=== PATIENT | female | born 1950 | race Caucasian/White ===

== ENCOUNTER 2016-08-23 12:27 | Observation (INO) | payer MEDICARE ==
[~2016-08-23] VITALS: Ht 154.9 cm; Wt 84.5 kg
[~2016-08-23 12:27] MED LIST: ALBU6.7H INH; AMLO10TA2 PO; ASPI-496 PO; ATOR10TA PO; ATOR20TA9 PO; BENA40TA2 PO; CANA100T PO; CARV6.252 PO; CYCL-259 PO; DICL100G8 TP; DIPH25CA61 PO; EPIN0.3P3 INJ; GEMF600T3 PO; IBUP-1222 PO; METH500T97 PO; METH750T2 PO; MONT10TA9 PO; PANT40TA3 PO; PRAV20TA2 PO; SERT25TA3 PO
[2016-08-23] MEDS ORDERED: SODIUM CHLORIDE 0.9% 1,000 ML IV ONE (12:57)
[2016-08-23] MEDS ORDERED: ASPIRIN 81 MG TABLET CHEW PO ONE (13:00)
[2016-08-23] MEDS ORDERED: SODIUM CHLORIDE FLUSH 10ML SYR IVF ONE (13:00)
[2016-08-23] MEDS ORDERED: NITROGLYCERIN SINGLE TAB 0.4 MG SL ONE (13:14)
[2016-08-23] MEDS: NITROGLYCERIN SINGLE TAB 0.4 MG SL PRN ×3 (13:15→13:25)
[2016-08-23] MEDS ORDERED: ASPIRIN 81 MG TABLET CHEW ONE (13:15)
[2016-08-23 13:23] LABS: HEMOGLOBIN 15.2 g/dL (11.7-16.4)
[2016-08-23] MEDS ORDERED: TRAM50TA2 PO (13:29)
[2016-08-23] MEDS ORDERED: LORA1TAB PO (13:29)
[2016-08-23 13:36] LABS: BLOOD UREA NITROGEN 10 mg/dL (7-18)
[2016-08-23 13:42] LABS: IS PT STATUS REG ER OR PRE ER? YES
[2016-08-23] MEDS ORDERED: MORPHINE SULFATE 4 MG/ML, 1ML ONE (13:52)
[2016-08-23] MEDS: LORazepam 1MG TABLET PO SCH ×2 (14:21→21:07)
[2016-08-23] MEDS ORDERED: DEXTROSE 4 GM TAB.CHEW PO PRN (14:30)
[2016-08-23] MEDS ORDERED: NITROGLYCERIN 0.4 MG/SPRAY SL PRN (14:30)
[2016-08-23] MEDS ORDERED: ACETAMINOPHEN 325 MG TABLET PO PRN (14:30)
[2016-08-23] MEDS ORDERED: NITROGLYCERIN 0.4 MG BOTTLE (25 TABS) SL PRN (14:30)
[2016-08-23] MEDS ORDERED: DEXTROSE 50%, 50ML SYRINGE IVPush PRN (14:30)
[2016-08-23] MEDS ORDERED: MORPHINE SULFATE 4 MG/ML, 1ML IVPush PRN ×2 (14:30)
[2016-08-23] MEDS ORDERED: GLUCAGON 1 MG IM PRN (14:30)
[2016-08-23] MEDS ORDERED: ENOXAPARIN 40 MG/0.4 ML SQ SCH (14:30)
[2016-08-23] MEDS ORDERED: ALBUTEROL SULFATE 2.5 MG/3 ML HHN PRN (15:00)
[2016-08-23 15:08] VITALS: BP 146/80
[2016-08-23] MEDS: INSULIN ASPART 100 UNITS/ML, PEN SQ-INSULIN SCH ×2 (16:00→21:08)
[2016-08-23 19:33] VITALS: BP 134/77
[2016-08-23 20:04] LABS: IS PT STATUS REG ER OR PRE ER? NO
[2016-08-23] MEDS ORDERED: CARVEDILOL 6.25 MG TABLET PO SCH ×2 (21:00)
[2016-08-23] MEDS ORDERED: ATORVASTATIN 20 MG TABLET PO SCH (21:00)
[2016-08-23] MEDS: SODIUM CHLORIDE FLUSH 10ML SYR IVF SCH (21:06)
[2016-08-24 02:36] VITALS: BP 113/70
[2016-08-24 02:42] LABS: HEMOGLOBIN 14.2 g/dL (11.7-16.4)
[2016-08-24 02:47] LABS: IS PT STATUS REG ER OR PRE ER? NO
[2016-08-24 02:59] LABS: BLOOD UREA NITROGEN 11 mg/dL (7-18)
[2016-08-24] MEDS: INSULIN ASPART 100 UNITS/ML, PEN SQ-INSULIN SCH ×2 (07:00→11:25)
[2016-08-24 07:48] VITALS: BP 120/67
[2016-08-24] MEDS: LORazepam 1MG TABLET PO SCH (07:57)
[2016-08-24] MEDS: SODIUM CHLORIDE FLUSH 10ML SYR IVF SCH (07:58)
[2016-08-24] MEDS ORDERED: REGADENOSON 0.4 MG/5 ML SYRINGE ONE (08:05)
[2016-08-24] MEDS ORDERED: BENAZEPRIL 20 MG TABLET PO SCH (09:00)
[2016-08-24] MEDS ORDERED: SERTRALINE 50MG TABLET PO SCH (09:00)
[2016-08-24] MEDS ORDERED: AMLODIPINE 5 MG TABLET PO SCH (09:00)
== END 2016-08-24 16:30 | disposition home or self-care (01) ==
LOC: ED 13:48 → INTOOBSV 13:49 → EDIP 13:49 → 5SO 14:50 → DCLOUNGE 08-24 15:55
PROVIDERS: ADMIT Family Medicine; ATTEND Family Medicine
DX: R07.89 Other chest pain (principal); I10 Essential (primary) hypertension; E11.9 Type 2 diabetes mellitus without complications; I21.3 ST elevation (STEMI) myocardial infarction of unspecified site; C95.90 Leukemia, unspecified not having achieved remission; E78.00 Pure hypercholesterolemia, unspecified; I25.10 Atherosclerotic heart disease of native coronary artery without angina pectoris; Z86.73 Personal history of transient ischemic attack (TIA), and cerebral infarction without residual deficits
CPT/HCPCS: 36415; 71010; 78452; 80048; 82040; 82962; 83880; 84484; 85025; 93005; 93017; 96361; 96372; 96374; 96376; 99285; A9502; C9898; G0378; J1650; J1815; J2785; J7030

== ENCOUNTER 2017-05-01 10:36 | Emergency (ER) | payer MEDICARE ==
[~2017-05-01] VITALS: Ht 154.9 cm; Wt 84.0 kg
[~2017-05-01 10:36] MED LIST changes: +DICL100G19 TP; -DICL100G8 TP; +LORA1TAB PO; +TRAM50TA2 PO
[2017-05-01] MEDS ORDERED: ALBUTEROL/IPRATROPIUM 2.5MG/0.5MG, 3 ML ONE (11:26)
[2017-05-01] MEDS ORDERED: ALBUTEROL/IPRATROPIUM 2.5MG/0.5MG, 3 ML NPPB ONE (11:30)
[2017-05-01] MEDS ORDERED: CEFTRIAXONE PMX 1GM/50ML 50 ML IVPB ONE (12:00)
[2017-05-01] MEDS ORDERED: ACETAMINOPHEN 325 MG TABLET PO ONE (12:00)
[2017-05-01] MEDS ORDERED: SODIUM CHLORIDE 0.9% 1,000ML IVBOLUS ONE (12:00)
[2017-05-01] MEDS ORDERED: AZITHROMYCIN 500 MG in SODIUM CHLORIDE 0.9% 250 ML IVPB ONE (12:00)
[2017-05-01] MEDS ORDERED: AMLO10TA2 PO (12:04)
[2017-05-01] MEDS ORDERED: AMLO5TAB2 PO (12:04)
[2017-05-01] MEDS ORDERED: DULO30CA2 PO (12:08)
[2017-05-01] MEDS ORDERED: LORA1TAB PO (12:08)
[2017-05-01] MEDS ORDERED: PIOG1TAB PO (12:08)
[2017-05-01] MEDS ORDERED: TIZA4TAB PO (12:08)
[2017-05-01] MEDS ORDERED: ACET1TAB34 PO (12:10)
[2017-05-01] MEDS ORDERED: ACETAMINOPHEN 325 MG TABLET ONE (12:15)
[2017-05-01 12:19] LABS: HEMATOCRIT 45.1 % (34.6-47.8); HEMOGLOBIN 15.1 g/dL (11.7-16.4); WHITE BLOOD COUNT 5.6 x10^3/uL (3.4-10)
[2017-05-01 12:24] LABS: BLOOD UREA NITROGEN 13 mg/dL (7-18)
[2017-05-01 13:18] VITALS: BP 177/90
== END 2017-05-01 13:23 | disposition home or self-care (01) ==
LOC: ED 12:42
DX: J18.0 Bronchopneumonia, unspecified organism (principal); E11.9 Type 2 diabetes mellitus without complications; E78.00 Pure hypercholesterolemia, unspecified; I10 Essential (primary) hypertension; I25.10 Atherosclerotic heart disease of native coronary artery without angina pectoris; I25.2 Old myocardial infarction; Z90.49 Acquired absence of other specified parts of digestive tract; Z90.710 Acquired absence of both cervix and uterus; Z88.8 Allergy status to other drugs, medicaments and biological substances
CPT/HCPCS: 36415; 71020; 80048; 82040; 83605; 84145; 85025; 87040; 93005; 94640; 96365; 96368; 99285; J0456; J0696; J7030; J7050; J7512; J7620

== ENCOUNTER 2017-06-06 11:46 | Emergency (ER) | payer MEDICARE ==
[~2017-06-06] VITALS: Ht 154.9 cm; Wt 89.0 kg
[~2017-06-06 11:46] MED LIST changes: +ACET1TAB34 PO; +AMLO5TAB2 PO; +DULO30CA2 PO; +PIOG1TAB PO; +TIZA4TAB PO
[2017-06-06 13:06] LABS: BASOPHILS # (AUTO) 0.04 x10^3/uL (0-0.1); BASOPHILS % (AUTO) 1 % (0-1); EOSINOPHILS # (AUTO) 0.13 x10^3/uL (0-0.4); EOSINOPHILS % (AUTO) 2 % (1-7); LYMPHOCYTES # (AUTO) 2.51 x10^3/uL (1-3.4); LYMPHOCYTES % (AUTO) 37 % (22-44); MD NO; MEAN CORPUSCULAR HEMOGLOBIN 29.3 pg (27.0-34.8); MEAN CORPUSCULAR HGB CONC 33.1 g/dL (32.4-35.8); MEAN CORPUSCULAR VOLUME 88.5 fL (80-100); MEAN PLATELET VOLUME 7.9 fL (7.4-10.4); MONOCYTES # (AUTO) 0.48 x10^3/uL (0.2-0.8); MONOCYTES % (AUTO) 7 % (2-9); NEUTROPHILS # (AUTO) 3.68 x10^3/uL (1.8-6.8); NEUTROPHILS % (AUTO) 54 % (42-75); PLATELET COUNT 317 x10^3/uL (130-400); RED BLOOD COUNT 4.85 x10^6/uL (3.82-5.3); RED CELL DISTRIBUTION WIDTH 15.2 % (9.6-15.2)
[2017-06-06 13:15] LABS: INTERNATIONAL NORMALIZED RATIO 0.99 (0.93-1.1); PROTHROMBIN TIME 10.3 Seconds (9.6-11.5)
[2017-06-06 13:19] LABS: ALBUMIN 3.8 g/dL (3.4-5.0); ANION GAP 6 mmol/L (5-15); CALCIUM 8.8 mg/dL (8.5-10.1); CHLORIDE 106 mmol/L (98-107); CREATININE 0.67 mg/dL (0.55-1.02)
[2017-06-06 13:22] LABS: TROPONIN I < 0.015 ng/mL (0.000-0.045)
[2017-06-06 14:18] VITALS: BP 173/93
== END 2017-06-06 15:00 | disposition home or self-care (01) ==
LOC: ED 14:00
DX: M94.0 Chondrocostal junction syndrome [Tietze] (principal); E11.9 Type 2 diabetes mellitus without complications; E78.00 Pure hypercholesterolemia, unspecified; G43.909 Migraine, unspecified, not intractable, without status migrainosus; I10 Essential (primary) hypertension; I21.9 Acute myocardial infarction, unspecified; I25.10 Atherosclerotic heart disease of native coronary artery without angina pectoris; Z90.49 Acquired absence of other specified parts of digestive tract
CPT/HCPCS: 36415; 71046; 80048; 82040; 84484; 85025; 85610; 85730; 93005

== ENCOUNTER → 2017-12-14 | Outpatient (CLI) | payer MEDICARE ==
[~2017-12-14] MED LIST changes: +OMNIPAQUE 350 MG/ML, 150 ML BOTTLE ONE
== END | disposition home or self-care (01) ==
LOC: CFH 13:05
PROVIDERS: ATTEND Pain Medicine Interventional Pain Medicine
DX: E04.2 Nontoxic multinodular goiter (principal); R07.9 Chest pain, unspecified; M54.12 Radiculopathy, cervical region
CPT/HCPCS: 70491; 71046; 71260; 82565; Q9967

== ENCOUNTER → 2018-03-02 | Outpatient (CLI) | payer MEDICARE ==
[~2018-03-02] MED LIST changes: -AMLO10TA2 PO; +AMLO10TA6 PO; -AMLO5TAB2 PO; +AMLO5TAB7 PO; -BENA40TA2 PO; +BENA40TA3 PO; -GEMF600T3 PO; +GEMF600T4 PO; -OMNIPAQUE 350 MG/ML, 150 ML BOTTLE ONE
[2018-03-02 12:54] LABS: T4 (THYROXINE) 12.8 mcg/dL (4.8-13.9)
[2018-03-02 13:02] LABS: THYROID STIMULATING HORMONE 1.43 mIU/L (0.358-3.740)
== END | disposition home or self-care (01) ==
LOC: CFH 09:24
PROVIDERS: ATTEND Family Medicine
DX: E04.1 Nontoxic single thyroid nodule (principal); E11.9 Type 2 diabetes mellitus without complications; Z86.73 Personal history of transient ischemic attack (TIA), and cerebral infarction without residual deficits
CPT/HCPCS: 36415; 84436; 84443; 86376; 86800

== ENCOUNTER 2018-03-16 09:05 | Emergency (ER) | payer MEDICARE ==
[~2018-03-16] VITALS: Ht 154.9 cm; Wt 99.5 kg
[2018-03-16] MEDS ORDERED: AMLODIPINE 5 MG TABLET ONE (09:41)
[2018-03-16] MEDS ORDERED: ACETAMINOPHEN 500 MG TABLET ONE (09:41)
[2018-03-16] MEDS ORDERED: CARVEDILOL 3.125 MG TABLET ONE (09:41)
[2018-03-16] MEDS ORDERED: PROMETHAZINE 25 MG/ML, 1ML ONE (09:41)
[2018-03-16] MEDS ORDERED: ACETAMINOPHEN 500 MG TABLET PO ONE (10:00)
[2018-03-16] MEDS ORDERED: PROMETHAZINE 25 MG/ML, 1ML IM ONE (10:00)
[2018-03-16] MEDS ORDERED: AMLODIPINE 5 MG TABLET PO ONE (10:00)
[2018-03-16] MEDS ORDERED: CARVEDILOL 6.25 MG TABLET PO ONE (10:30)
[2018-03-16] MEDS ORDERED: BENAZEPRIL 20 MG TABLET PO ONE (10:30)
[2018-03-16 10:31] VITALS: BP 164/86
== END 2018-03-16 11:12 | disposition home or self-care (01) ==
LOC: ED 10:30
DX: R51 Headache (principal); J20.8 Acute bronchitis due to other specified organisms; I10 Essential (primary) hypertension; B97.89 Other viral agents as the cause of diseases classified elsewhere; E11.9 Type 2 diabetes mellitus without complications; F41.1 Generalized anxiety disorder; I25.10 Atherosclerotic heart disease of native coronary artery without angina pectoris; Z87.891 Personal history of nicotine dependence
CPT/HCPCS: 93005; 96372; 99284; J2550

== ENCOUNTER → 2018-03-18 | Outpatient (CLI) | payer MEDICARE | END | disposition home or self-care (01) | LOC: CFH 14:16 | PROVIDERS: ATTEND Family Medicine | DX: E04.2 Nontoxic multinodular goiter (principal) | CPT/HCPCS: 76536 ==

== ENCOUNTER 2018-04-13 19:11 | Emergency (ER) | payer MEDICARE ==
[~2018-04-13] VITALS: Ht 154.9 cm; Wt 98.8 kg
[2018-04-13] MEDS ORDERED: ALBUTEROL/IPRATROPIUM 2.5MG/0.5MG, 3 ML NPPB ONE (19:30)
[2018-04-13] MEDS ORDERED: ONDANSETRON 2MG/ML, 2ML IVPush ONE (19:30)
[2018-04-13] MEDS ORDERED: SODIUM CHLORIDE FLUSH 10ML SYR IVF ONE (19:30)
[2018-04-13] MEDS ORDERED: ONDANSETRON 2MG/ML, 2ML ONE (19:46)
[2018-04-13] MEDS ORDERED: AZITHROMYCIN 500 MG TABLET PO ONE (20:00)
[2018-04-13] MEDS ORDERED: ALBUTEROL/IPRATROPIUM 2.5MG/0.5MG, 3 ML ONE (20:01)
[2018-04-13] MEDS ORDERED: AZITHROMYCIN 250 MG TABLET ONE (20:03)
[2018-04-13 20:04] LABS: BASOPHILS # (AUTO) 0.03 x10^3/uL (0-0.1); BASOPHILS % (AUTO) 0 % (0-1); EOSINOPHILS # (AUTO) 0.41 x10^3/uL (0-0.4); EOSINOPHILS % (AUTO) 5 % (1-7); LYMPHOCYTES % (AUTO) 24 % (22-44); MD NO; MEAN CORPUSCULAR HEMOGLOBIN 30.1 pg (27.0-34.8); MEAN CORPUSCULAR HGB CONC 33.3 g/dL (32.4-35.8); MEAN CORPUSCULAR VOLUME 90.3 fL (80-100); MEAN PLATELET VOLUME 8.9 fL (7.4-10.4); MONOCYTES # (AUTO) 0.65 x10^3/uL (0.2-0.8); MONOCYTES % (AUTO) 8 % (2-9); NEUTROPHILS # (AUTO) 5.11 x10^3/uL (1.8-6.8); NEUTROPHILS % (AUTO) 62 % (42-75); PLATELET COUNT 243 x10^3/uL (130-400); RED BLOOD COUNT 4.48 x10^6/uL (3.82-5.3)
[2018-04-13 20:07] LABS: ANION GAP 11 mmol/L (5-15); CHLORIDE 110 mmol/L (98-107); CREATININE 1.08 mg/dL (0.55-1.02)
[2018-04-13 20:25] LABS: TROPONIN I < 0.015 ng/mL (0.000-0.045)
[2018-04-13 21:08] VITALS: BP 140/73
[2018-04-13] MEDS ORDERED: ACETAMINOPHEN 500 MG TABLET ONE (21:27)
[2018-04-13] MEDS ORDERED: ACETAMINOPHEN 500 MG TABLET PO ONE (21:30)
== END 2018-04-13 21:43 | disposition home or self-care (01) ==
LOC: ED 20:32
DX: J18.9 Pneumonia, unspecified organism (principal); J45.901 Unspecified asthma with (acute) exacerbation; E78.00 Pure hypercholesterolemia, unspecified; I25.2 Old myocardial infarction; I25.10 Atherosclerotic heart disease of native coronary artery without angina pectoris; I10 Essential (primary) hypertension; E11.9 Type 2 diabetes mellitus without complications; G43.909 Migraine, unspecified, not intractable, without status migrainosus; Z90.49 Acquired absence of other specified parts of digestive tract; Z90.710 Acquired absence of both cervix and uterus
CPT/HCPCS: 36415; 71045; 80048; 82040; 83605; 84145; 84484; 85025; 87040; 93005; 94640; 96374; 99285; J2405; J7512; J7620

== ENCOUNTER 2018-04-17 11:10 | Emergency (ER) | payer MEDICARE ==
[~2018-04-17] VITALS: Ht 154.9 cm; Wt 99.2 kg
[2018-04-17] MEDS ORDERED: IPRATROPIUM 0.5 MG/2.5 ML INHA NPPB ONE (12:00)
[2018-04-17] MEDS ORDERED: IPRATROPIUM 0.5 MG/2.5 ML INHA ONE (12:04)
[2018-04-17] MEDS ORDERED: SODIUM CHLORIDE FLUSH 10ML SYR IVF ONE (12:30)
[2018-04-17 12:39] LABS: BASOPHILS # (AUTO) 0.03 x10^3/uL (0-0.1); BASOPHILS % (AUTO) 0 % (0-1); EOSINOPHILS # (AUTO) 0.02 x10^3/uL (0-0.4); EOSINOPHILS % (AUTO) 0 % (1-7); LYMPHOCYTES # (AUTO) 3.32 x10^3/uL (1-3.4); LYMPHOCYTES % (AUTO) 26 % (22-44); MD NO; MEAN CORPUSCULAR HEMOGLOBIN 29.2 pg (27.0-34.8); MEAN CORPUSCULAR HGB CONC 32.5 g/dL (32.4-35.8); MEAN CORPUSCULAR VOLUME 89.9 fL (80-100); MEAN PLATELET VOLUME 8.5 fL (7.4-10.4); MONOCYTES # (AUTO) 0.83 x10^3/uL (0.2-0.8); MONOCYTES % (AUTO) 7 % (2-9); NEUTROPHILS # (AUTO) 8.42 x10^3/uL (1.8-6.8); NEUTROPHILS % (AUTO) 67 % (42-75); PLATELET COUNT 239 x10^3/uL (130-400); RED BLOOD COUNT 4.34 x10^6/uL (3.82-5.3); RED CELL DISTRIBUTION WIDTH 14.8 % (9.6-15.2)
[2018-04-17 12:48] LABS: ALANINE AMINOTRANSFERASE 23 U/L (12-78); ALBUMIN 3.6 g/dL (3.4-5.0); ANION GAP 9 mmol/L (5-15); CALCIUM 8.6 mg/dL (8.5-10.1); CHLORIDE 111 mmol/L (98-107); CREATININE 0.77 mg/dL (0.55-1.02)
[2018-04-17 12:52] LABS: ALKALINE PHOSPHATASE 97 U/L (45-117); BILIRUBIN,TOTAL 0.3 mg/dL (0.2-1.0); TOTAL PROTEIN 7.3 g/dL (6.4-8.2)
[2018-04-17] MEDS ORDERED: OMNIPAQUE 350 MG/ML, 100ML BOTTLE ONE (13:31)
[2018-04-17 14:19] VITALS: BP 187/91
== END 2018-04-17 14:44 | disposition home or self-care (01) ==
LOC: ED 11:43
DX: J20.8 Acute bronchitis due to other specified organisms (principal); J45.909 Unspecified asthma, uncomplicated; I10 Essential (primary) hypertension; E11.9 Type 2 diabetes mellitus without complications; F41.1 Generalized anxiety disorder; I25.10 Atherosclerotic heart disease of native coronary artery without angina pectoris; I25.2 Old myocardial infarction; E78.00 Pure hypercholesterolemia, unspecified; Z90.49 Acquired absence of other specified parts of digestive tract; Z90.710 Acquired absence of both cervix and uterus; Z90.89 Acquired absence of other organs
CPT/HCPCS: 36415; 71046; 71275; 80053; 83880; 85025; 93005; 94640; 99285; J7512; J7644; Q9967

== ENCOUNTER 2018-04-26 12:07 | Inpatient (IN) | payer MEDICARE ==
[~2018-04-26] VITALS: Ht 154.9 cm; Wt 98.4 kg
[2018-04-26] MEDS ORDERED: NITROGLYCERIN SINGLE TAB 0.4 MG SL ONE (15:28)
[2018-04-26] MEDS ORDERED: ASPIRIN 81 MG TABLET CHEW ONE (15:28)
[2018-04-26] MEDS ORDERED: NITROGLYCERIN SINGLE TAB 0.4 MG SL PRN (15:30)
[2018-04-26] MEDS ORDERED: SODIUM CHLORIDE FLUSH 10ML SYR IVF ONE (15:30)
[2018-04-26] MEDS ORDERED: ASPIRIN 81 MG TABLET CHEW PO ONE (15:30)
[2018-04-26 15:34] LABS: BASOPHILS # (AUTO) 0.07 x10^3/uL (0-0.1); BASOPHILS % (AUTO) 1 % (0-1); EOSINOPHILS # (AUTO) 0.24 x10^3/uL (0-0.4); EOSINOPHILS % (AUTO) 2 % (1-7); LYMPHOCYTES # (AUTO) 2.51 x10^3/uL (1-3.4); LYMPHOCYTES % (AUTO) 25 % (22-44); MD NO; MEAN CORPUSCULAR HEMOGLOBIN 28.9 pg (27.0-34.8); MEAN CORPUSCULAR VOLUME 90.3 fL (80-100); MEAN PLATELET VOLUME 8.3 fL (7.4-10.4); MONOCYTES % (AUTO) 6 % (2-9); NEUTROPHILS # (AUTO) 6.53 x10^3/uL (1.8-6.8); NEUTROPHILS % (AUTO) 66 % (42-75); PLATELET COUNT 252 x10^3/uL (130-400); RED BLOOD COUNT 4.27 x10^6/uL (3.82-5.3); RED CELL DISTRIBUTION WIDTH 15.2 % (9.6-15.2)
[2018-04-26 15:46] LABS: ALANINE AMINOTRANSFERASE 22 U/L (12-78); ALBUMIN 3.5 g/dL (3.4-5.0); ANION GAP 10 mmol/L (5-15); CALCIUM 8.7 mg/dL (8.5-10.1); CHLORIDE 111 mmol/L (98-107)
[2018-04-26 15:50] LABS: ALKALINE PHOSPHATASE 93 U/L (45-117); BILIRUBIN,TOTAL 0.3 mg/dL (0.2-1.0); CREATININE 0.83 mg/dL (0.55-1.02); INTERNATIONAL NORMALIZED RATIO 0.95 (0.93-1.1); PROTHROMBIN TIME 10.1 Seconds (9.6-11.5); TOTAL PROTEIN 7.2 g/dL (6.4-8.2); TROPONIN I < 0.015 ng/mL (0.000-0.045)
[2018-04-26] MEDS ORDERED: ENOXAPARIN 40 MG/0.4 ML SQ SCH (16:30)
[2018-04-26] MEDS ORDERED: BISACODYL 10 MG SUPP PR PRN (16:30)
[2018-04-26] MEDS ORDERED: ONDANSETRON ODT 4 MG PO PRN (16:30)
[2018-04-26] MEDS ORDERED: DOCUSATE 100 MG CAPSULE PO PRN (16:30)
[2018-04-26] MEDS ORDERED: hydrALAzine 20 MG/ML, 1ML IVPush PRN (16:30)
[2018-04-26] MEDS ORDERED: CHLO25TA PO (16:37)
[2018-04-26] MEDS ORDERED: BENA40TA3 PO (16:37)
[2018-04-26] MEDS ORDERED: PIOG30TA67 PO (16:37)
[2018-04-26 17:23] LABS: CHOLESTEROL, TOTAL 177 mg/dL (140-239)
[2018-04-26 17:26] LABS: CHOL/HDL RATIO 4.7; HDL CHOL % 21 % (28-40); HDL CHOLESTEROL (DIRECT) 38 mg/dL (40-60); LDL CHOLESTEROL,CALCULATED 70 mg/dL (54-169); LDL/HDL RATIO 1.8 (0.5-3.0); TRIGLYCERIDES 347 mg/dL (50-200); TROPONIN I < 0.015 ng/mL (0.000-0.045); VLDL CHOLESTEROL 69 mg/dL (0-25)
[2018-04-26] MEDS ORDERED: SODIUM CHLORIDE FLUSH 10ML SYR IVF PRN (18:00)
[2018-04-26 19:42] VITALS: BP 168/89
[2018-04-26] MEDS: SODIUM CHLORIDE FLUSH 10ML SYR IVF SCH (20:35)
[2018-04-26] MEDS: INSULIN LISPRO 100 UNITS/ML, PEN SQ-INSULIN SCH (20:35)
[2018-04-26] MEDS ORDERED: ATORVASTATIN 20 MG TABLET PO SCH (21:00)
[2018-04-26 21:05] VITALS: BP 171/85
[2018-04-26] MEDS ORDERED: NITROGLYCERIN 0.4 MG BOTTLE (25 TABS) SL ONE (21:26)
[2018-04-26] MEDS ORDERED: NITROGLYCERIN 0.4 MG BOTTLE (25 TABS) SL PRN (21:30)
[2018-04-26] MEDS: ACETAMINOPHEN 325 MG TABLET PO PRN (21:36)
[2018-04-26 21:41] VITALS: BP 132/83
[2018-04-26 22:33] LABS: TROPONIN I < 0.015 ng/mL (0.000-0.045)
[2018-04-27 01:59] VITALS: BP 148/74
[2018-04-27 05:37] LABS: BASOPHILS # (AUTO) 0.05 x10^3/uL (0-0.1); BASOPHILS % (AUTO) 1 % (0-1); EOSINOPHILS # (AUTO) 0.21 x10^3/uL (0-0.4); EOSINOPHILS % (AUTO) 3 % (1-7); LYMPHOCYTES # (AUTO) 2.78 x10^3/uL (1-3.4); LYMPHOCYTES % (AUTO) 33 % (22-44); MD NO; MEAN CORPUSCULAR HEMOGLOBIN 30.2 pg (27.0-34.8); MEAN CORPUSCULAR HGB CONC 33.3 g/dL (32.4-35.8); MEAN CORPUSCULAR VOLUME 90.8 fL (80-100); MEAN PLATELET VOLUME 8.4 fL (7.4-10.4); MONOCYTES # (AUTO) 0.53 x10^3/uL (0.2-0.8); MONOCYTES % (AUTO) 6 % (2-9); NEUTROPHILS # (AUTO) 5.01 x10^3/uL (1.8-6.8); NEUTROPHILS % (AUTO) 58 % (42-75); PLATELET COUNT 231 x10^3/uL (130-400); RED BLOOD COUNT 4.21 x10^6/uL (3.82-5.3); RED CELL DISTRIBUTION WIDTH 15.1 % (9.6-15.2)
[2018-04-27 05:42] LABS: ANION GAP 8 mmol/L (5-15); CALCIUM 8.7 mg/dL (8.5-10.1); CHLORIDE 113 mmol/L (98-107); CREATININE 0.73 mg/dL (0.55-1.02)
[2018-04-27] MEDS ORDERED: ASPIRIN 325 MG TABLET EC PO SCH ×2 (06:00)
[2018-04-27] MEDS: ACETAMINOPHEN 325 MG TABLET PO PRN (06:43)
[2018-04-27] MEDS: INSULIN LISPRO 100 UNITS/ML, PEN SQ-INSULIN SCH ×2 (07:00→11:00)
[2018-04-27 08:00] VITALS: BP 103/68
[2018-04-27] MEDS ORDERED: REGADENOSON 0.4 MG/5 ML SYRINGE ONE (08:18)
[2018-04-27] MEDS ORDERED: TIZANIDINE 2MG TABLET ONE ×2 (08:47→08:50)
[2018-04-27] MEDS ORDERED: BENAZEPRIL 10 MG TABLET ONE (08:47)
[2018-04-27] MEDS ORDERED: CHLORTHALIDONE 25 MG TABLET PO SCH (09:00)
[2018-04-27] MEDS ORDERED: SERTRALINE 50MG TABLET PO SCH (09:00)
[2018-04-27] MEDS ORDERED: BENAZEPRIL 20 MG TABLET PO SCH (09:00)
[2018-04-27] MEDS ORDERED: AMLODIPINE 5 MG TABLET PO SCH (09:00)
[2018-04-27] MEDS ORDERED: DULOXETINE 30 MG CAPSULE.DR PO SCH (09:00)
[2018-04-27] MEDS ORDERED: TIZANIDINE 4MG TABLET PO SCH (09:00)
[2018-04-27] MEDS ORDERED: KETOROLAC 30 MG/1 ML IV PRN (10:00)
[2018-04-27] MEDS ORDERED: LIDODERM 5% PATCH TD PRN (11:00)
[2018-04-27 11:04] VITALS: BP 123/78
[2018-04-27] MEDS: SODIUM CHLORIDE FLUSH 10ML SYR IVF SCH (11:06)
[2018-04-27 14:00] VITALS: BP 126/73
[2018-04-27] MEDS ORDERED: BENZ100C PO (14:36)
[2018-04-27] MEDS ORDERED: IBUP-1222 PO (14:36)
[2018-04-28] MEDS ORDERED: ASPIRIN 81 MG TABLET EC PO SCH (06:00)
== END 2018-04-27 16:30 | disposition home or self-care (01) | DRG 311 ==
LOC: ED 16:19 → EDIP 16:20 → ED 17:02 → 5SO 18:10 → DCLOUNGE 04-27 16:10
PROVIDERS: ADMIT Family Medicine; ATTEND Family Medicine
DX: I20.9 Angina pectoris, unspecified (principal); J45.909 Unspecified asthma, uncomplicated; E78.5 Hyperlipidemia, unspecified; E11.9 Type 2 diabetes mellitus without complications; I10 Essential (primary) hypertension; Z86.73 Personal history of transient ischemic attack (TIA), and cerebral infarction without residual deficits; Z87.891 Personal history of nicotine dependence; Z90.710 Acquired absence of both cervix and uterus; Z87.11 Personal history of peptic ulcer disease; I25.2 Old myocardial infarction; Z87.01 Personal history of pneumonia (recurrent); Z80.6 Family history of leukemia; Z90.49 Acquired absence of other specified parts of digestive tract
CPT/HCPCS: 36415; 71045; 78452; 80048; 80053; 80061; 82962; 83735; 83880; 84100; 84484; 85025; 85610; 85730; 93005; 93017; 99285; G0378; J1650; J2785; A9502; C9898

== ENCOUNTER → 2018-06-21 | Outpatient (CLI) | payer MEDICARE ==
[~2018-06-21] MED LIST changes: +AMLO-150 PO; -AMLO10TA6 PO; +AMLO10TA8 PO; -AMLO5TAB7 PO; +ATOR20TA37 PO; -ATOR20TA9 PO; +BENZ100C PO; +CHLO25TA PO; -GEMF600T4 PO; +GEMF600T8 PO; -PIOG1TAB PO; +PIOG1TAB38 PO; +PIOG30TA67 PO
== END | disposition home or self-care (01) ==
LOC: CFH 08:24
PROVIDERS: ATTEND Nurse Practitioner
DX: M50.30 Other cervical disc degeneration, unspecified cervical region (principal)
CPT/HCPCS: 72125

== ENCOUNTER 2018-07-09 16:36 | Emergency (ER) | payer MEDICARE ==
[~2018-07-09] VITALS: Ht 154.9 cm; Wt 99.9 kg
[2018-07-09] MEDS ORDERED: SODIUM CHLORIDE FLUSH 10ML SYR IVF ONE (17:00)
[2018-07-09 17:31] LABS: BASOPHILS # (AUTO) 0.03 x10^3/uL (0-0.1); BASOPHILS % (AUTO) 1 % (0-1); EOSINOPHILS # (AUTO) 0.41 x10^3/uL (0-0.4); EOSINOPHILS % (AUTO) 6 % (1-7); LYMPHOCYTES # (AUTO) 2.08 x10^3/uL (1-3.4); LYMPHOCYTES % (AUTO) 31 % (22-44); MD NO; MEAN CORPUSCULAR HGB CONC 33.4 g/dL (32.4-35.8); MEAN CORPUSCULAR VOLUME 89.9 fL (80-100); MEAN PLATELET VOLUME 9.3 fL (7.4-10.4); MONOCYTES # (AUTO) 0.39 x10^3/uL (0.2-0.8); MONOCYTES % (AUTO) 6 % (2-9); NEUTROPHILS # (AUTO) 3.92 x10^3/uL (1.8-6.8); NEUTROPHILS % (AUTO) 57 % (42-75); PLATELET COUNT 253 x10^3/uL (130-400); RED BLOOD COUNT 4.57 x10^6/uL (3.82-5.3); RED CELL DISTRIBUTION WIDTH 15.2 % (9.6-15.2)
[2018-07-09 17:43] LABS: ALANINE AMINOTRANSFERASE 31 U/L (12-78); ALBUMIN 3.8 g/dL (3.4-5.0); ANION GAP 5 mmol/L (5-15); CALCIUM 8.6 mg/dL (8.5-10.1); CHLORIDE 108 mmol/L (98-107); CREATININE 0.93 mg/dL (0.55-1.02)
--- NOTE | 2018-07-09 17:46 | NUR ---
PLUMBER HELPER: PT AMBUALTED INDEPENDENTLY TO ED ROOM 23 FROM LOBBY IN NAD AT THIS TIME
[2018-07-09 17:48] LABS: ALKALINE PHOSPHATASE 118 U/L (45-117); BILIRUBIN,TOTAL 0.3 mg/dL (0.2-1.0); TOTAL PROTEIN 7.7 g/dL (6.4-8.2); TROPONIN I < 0.015 ng/mL (0.000-0.045)
[2018-07-09 18:02] VITALS: BP 161/73
[2018-07-09] MEDS ORDERED: OXYcodone/APAP 5/325MG TABLET ONE (18:24)
[2018-07-09] MEDS ORDERED: OXYcodone/APAP 5/325MG TABLET PO ONE (18:30)
--- NOTE | 2018-07-09 18:36 | NUR ---
Patient/Caregiver given discharge instructions and they have confirmed that they understand the instructions. Patient ambulatory with steady gait.
== END 2018-07-09 18:37 | disposition home or self-care (01) ==
LOC: ED 18:30
DX: M94.0 Chondrocostal junction syndrome [Tietze] (principal); E78.00 Pure hypercholesterolemia, unspecified; E11.9 Type 2 diabetes mellitus without complications; I25.10 Atherosclerotic heart disease of native coronary artery without angina pectoris; I10 Essential (primary) hypertension; I25.2 Old myocardial infarction; G43.909 Migraine, unspecified, not intractable, without status migrainosus; E78.5 Hyperlipidemia, unspecified; F41.1 Generalized anxiety disorder; Z90.49 Acquired absence of other specified parts of digestive tract; Z90.710 Acquired absence of both cervix and uterus; Z87.891 Personal history of nicotine dependence
CPT/HCPCS: 36415; 71045; 80053; 84484; 85025; 93005; 99284

== ENCOUNTER 2020-12-09 13:59 | Emergency (ER) | payer MEDICARE ==
[~2020-12-09] VITALS: Ht 154.9 cm; Wt 96.5 kg
[~2020-12-09 13:59] MED LIST changes: -ALBU6.7H INH; +ALBU6.7H8 INH; +AMLO-211 PO; -AMLO10TA8 PO; -CYCL-259 PO; +CYCL10TA2 PO; +GEMF-31 PO; -GEMF600T8 PO; +METH-640 PO; -METH750T2 PO; +MONT10TA17 PO; -MONT10TA9 PO; +SERT-331 PO; -SERT25TA3 PO; -TIZA4TAB PO; +TIZA4TAB2 PO
--- NOTE | 2020-12-09 16:24 | NUR ---
core checker: Pt ambulatory to room from lobby at this time.
--- NOTE | 2020-12-09 16:39 | NUR ---
Pt fully undressed in gown, waiting for ERP and further orders. Pt c/o sinus headache and migraine type headache, no trauma. Connected to cont pulse ox, b/p. call hutton in reach. AIDET provided.
--- NOTE | 2020-12-09 17:15 | NUR ---
RECEIVED REPORT FORM JASON ADAME. PT RESTING ON ANTHONYEAMON. NADN. ABARCA.
[2020-12-09] MEDS ORDERED: DIPHENHYDRAMINE 50 MG/ML, 1ML ONE (17:57)
[2020-12-09] MEDS ORDERED: METOCLOPRAMIDE 5 MG/ML, 2ML ONE (17:57)
[2020-12-09] MEDS ORDERED: SODIUM CHLORIDE 0.9% 1,000ML IVBOLUS ONE (18:00)
[2020-12-09] MEDS ORDERED: METOCLOPRAMIDE 5 MG/ML, 2ML IVPush ONE (18:00)
[2020-12-09] MEDS ORDERED: DIPHENHYDRAMINE 50 MG/ML, 1ML IVPush ONE (18:00)
[2020-12-09 18:04] LABS: BASOPHILS % (AUTO) 1 % (0-1); EOSINOPHILS % (AUTO) 5 % (1-7); LYMPHOCYTES % (AUTO) 19 % (22-44); MEAN CORPUSCULAR HGB CONC 33.5 g/dL (32.4-35.8); MEAN PLATELET VOLUME 8.9 fL (7.4-10.4); MONOCYTES % (AUTO) 8 % (2-9); NEUTROPHILS % (AUTO) 67 % (42-75); PLATELET COUNT 221 x10^3/uL (130-400); RED BLOOD COUNT 4.54 x10^6/uL (3.82-5.3); RED CELL DISTRIBUTION WIDTH 14.8 % (9.6-15.2)
--- NOTE | 2020-12-09 18:09 | NUR ---
PT RESTING ON GURNEY. NADN. PT INCREASED AFTER PT AMBULATED TO RESTROOM.
[2020-12-09 18:11] LABS: ALBUMIN 3.8 g/dL (3.4-5.0); ANION GAP 6 mmol/L (5-15); CHLORIDE 105 mmol/L (98-107); CREATININE 0.95 mg/dL (0.55-1.02)
--- NOTE | 2020-12-09 18:35 | NUR ---
PT TAKEN TO CT IN STABLE CONDITION.
--- NOTE | 2020-12-09 19:18 | NUR ---
PT RESTING ON GURELIECER. NADN. VSS. PT STATES ANAYA SIMILAR. ERP DR. LAIRD NOTIFIED. NEW ORDERS PLACED.
[2020-12-09] MEDS ORDERED: KETOROLAC 30 MG/1 ML ONE (19:22)
[2020-12-09] MEDS ORDERED: KETOROLAC 30 MG/1 ML IVPush ONE (19:30)
[2020-12-09 19:52] VITALS: BP 165/70
--- NOTE | 2020-12-09 19:53 | NUR ---
TASK RN: Patient given discharge instructions and they have confirmed that they understand the instructions. Patient ambulatory with steady gait. NAD, all questions answered appropriately, denies additional needs at this time. No personal belongings left in room after discharge.
== END 2020-12-09 19:54 | disposition home or self-care (01) ==
LOC: ED 19:40
DX: R51.9 Headache, unspecified (principal); J32.1 Chronic frontal sinusitis; J32.0 Chronic maxillary sinusitis; I10 Essential (primary) hypertension; E11.9 Type 2 diabetes mellitus without complications; Z87.891 Personal history of nicotine dependence
CPT/HCPCS: 36415; 70450; 71045; 80048; 82040; 85025; 96374; 96375; 99285; J1200; J1885; J2765; J7030